=== PATIENT | female | born 1985 | race Caucasian/White ===

== ENCOUNTER 2018-01-04 02:38 | Inpatient (IN) | payer BC ==
[~2018-01-04] VITALS: Ht 160 cm; Wt 100.0 kg
[2018-01-04 02:56] VITALS: BP 129/68
[2018-01-04] MEDS ORDERED: OXYTOCIN 30U/ 0.9% NaCL 500ML 500 ML ONE ×2 (04:06→14:06)
[2018-01-04] MEDS ORDERED: MISOPROSTOL 200 MCG TABLET ONE (04:06)
[2018-01-04] MEDS ORDERED: LIDOCAINE 1%, 20ML ONE (04:06)
[2018-01-04] MEDS: D5%-LACTATED RINGERS 1,000 ML IV SCH ×2 (04:07→12:07)
[2018-01-04] MEDS ORDERED: OXYTOCIN 30U/ 0.9% NaCL 500ML 500 ML IV PRN (04:07)
[2018-01-04] MEDS ORDERED: OXYTOCIN 30U/ 0.9% NaCL 500ML 500 ML IV ONE (04:07)
[2018-01-04] MEDS ORDERED: FENTANYL PF 100 MCG/2ML ONE ×2 (04:15→05:08)
[2018-01-04] MEDS: LACTATED RINGERS 1,000 ML IV SCH ×4 (04:17→14:13)
[2018-01-04] MEDS ORDERED: ONDANSETRON 2MG/ML, 2ML ONE (04:19)
[2018-01-04] MEDS ORDERED: ONDANSETRON 2MG/ML, 2ML IVPush PRN ×2 (04:30→06:30)
[2018-01-04] MEDS ORDERED: FENTANYL PF 100 MCG/2ML IVPush PRN (04:30)
[2018-01-04] MEDS ORDERED: CALCIUM CARBONATE 500 MG TAB.CHEW PO PRN ×3 (04:30→18:30)
[2018-01-04] MEDS ORDERED: FENTANYL PF 100 MCG/2ML IV PRN (04:30)
[2018-01-04 04:58] LABS: BASOPHILS # (AUTO) 0.05 x10^3/uL (0-0.1); BASOPHILS % (AUTO) 0 % (0-1); EOSINOPHILS # (AUTO) 0.14 x10^3/uL (0-0.4); EOSINOPHILS % (AUTO) 1 % (1-7); LYMPHOCYTES # (AUTO) 1.85 x10^3/uL (1-3.4); LYMPHOCYTES % (AUTO) 14 % (22-44); MD NO; MEAN CORPUSCULAR HEMOGLOBIN 30.5 pg (27.0-34.8); MEAN CORPUSCULAR HGB CONC 34.1 g/dL (32.4-35.8); MEAN CORPUSCULAR VOLUME 89.4 fL (80-100); MEAN PLATELET VOLUME 10.4 fL (7.4-10.4); MONOCYTES % (AUTO) 5 % (2-9); NEUTROPHILS # (AUTO) 10.73 x10^3/uL (1.8-6.8); NEUTROPHILS % (AUTO) 80 % (42-75); PLATELET COUNT 203 x10^3/uL (130-400); RED BLOOD COUNT 4.33 x10^6/uL (3.82-5.3); RED CELL DISTRIBUTION WIDTH 14.9 % (9.6-15.2)
[2018-01-04] MEDS ORDERED: FENTANYL/BUPIV./NS/PF 250 ML EPIDCONT ONE (05:08)
[2018-01-04] MEDS ORDERED: BUPIVACAINE 0.25% ONE (05:08)
[2018-01-04] MEDS ORDERED: FENTANYL/BUPIV./NS/PF 250 ML EPIDCONT SCH (06:13)
[2018-01-04] MEDS ORDERED: LACTATED RINGERS 1,000 ML IVBOLUS PRN (06:30)
[2018-01-04] MEDS ORDERED: EPHEDRINE 50 MG/ML, 1ML IVPush PRN (06:30)
[2018-01-04] MEDS ORDERED: BETAMETHASONE 6 MG/ML, 5ML IM ONE (07:04)
[2018-01-04 07:50] VITALS: BP 145/75
[2018-01-04] MEDS ORDERED: OXYTOCIN 30U/ 0.9% NaCL 500ML 500 ML IV SCH (13:03)
[2018-01-04] MEDS ORDERED: MAGNESIUM HYDROXIDE 8%, 30ML UDC PO PRN ×2 (13:30→18:30)
[2018-01-04] MEDS ORDERED: OXYcodone/APAP 5/325MG TABLET PO PRN ×3 (13:30→18:30)
[2018-01-04] MEDS ORDERED: ONDANSETRON 2MG/ML, 2ML IV PRN ×2 (13:30→18:30)
[2018-01-04] MEDS ORDERED: RHOGAM FROM BLOOD BANK 1 NOTE EA IM/IV ONE ×2 (13:30→18:30)
[2018-01-04] MEDS ORDERED: DIPH,PERTUSS(ACELL),TET VAC/PF NC IM-VACC PRN ×2 (13:30→18:30)
[2018-01-04] MEDS ORDERED: ACETAMINOPHEN 325 MG TABLET PO PRN ×4 (13:30→18:30)
[2018-01-04] MEDS ORDERED: MISOPROSTOL 200 MCG TABLET PR PRN ×2 (13:30→18:30)
[2018-01-04] MEDS ORDERED: DOCUSATE 100 MG CAPSULE PO PRN ×2 (13:30→18:30)
[2018-01-04] MEDS ORDERED: MEASLES,MUMPS&RUBELLA VACC/PF 0.5 ML SQ PRN ×2 (13:30→18:30)
[2018-01-04] MEDS ORDERED: IBUPROFEN 600 MG TABLET PO PRN (13:30)
[2018-01-04] MEDS: OXYTOCIN 30U/ 0.9% NaCL 500ML 500 ML IV SCH (18:46)
[2018-01-04] MEDS ORDERED: IBUPROFEN 600 MG TABLET ONE (19:01)
[2018-01-04 20:40] VITALS: BP 111/70
[2018-01-04 23:30] VITALS: BP 103/63
[2018-01-04] MEDS: OXYcodone/APAP 5/325MG TABLET PO PRN (23:58)
[2018-01-05 02:27] LABS: MEAN CORPUSCULAR HEMOGLOBIN 30.5 pg (27.0-34.8); MEAN CORPUSCULAR HGB CONC 33.7 g/dL (32.4-35.8); MEAN CORPUSCULAR VOLUME 90.4 fL (80-100); MEAN PLATELET VOLUME 10.4 fL (7.4-10.4); PLATELET COUNT 182 x10^3/uL (130-400); RED BLOOD COUNT 3.42 x10^6/uL (3.82-5.3); RED CELL DISTRIBUTION WIDTH 14.9 % (9.6-15.2)
[2018-01-05 02:49] LABS: MD YES
[2018-01-05 02:50] VITALS: BP 133/76
[2018-01-05 02:50] LABS: BANDS%(MANUAL) 9 % (0-7); LYMPHS% (MANUAL) 5 % (22-44); MONOS% (MANUAL) 9 % (2-9); SEGS% (MANUAL) 77 % (42-75)
[2018-01-05 02:51] LABS: <PLATELET ESTIMATE> ADEQUATE; <PLT MORPHOLOGY> NORMAL PLT MORPH; <RBC MORPHOLOGY> NORMAL
[2018-01-05] MEDS: OXYTOCIN 30U/ 0.9% NaCL 500ML 500 ML IV SCH ×2 (04:02→14:02)
[2018-01-05 07:15] VITALS: BP 111/73
[2018-01-05] MEDS: OXYcodone/APAP 5/325MG TABLET PO PRN ×3 (07:22→20:33)
[2018-01-05] MEDS: IBUPROFEN 600 MG TABLET PO PRN ×3 (07:22→20:33)
[2018-01-05] MEDS: PRENATAL VIT/IRON/FA 1 EACH TABLET PO SCH (07:22)
[2018-01-05] MEDS ORDERED: PRENATAL VIT/IRON/FA 1 EACH TABLET PO SCH (09:00)
[2018-01-05 12:11] VITALS: BP 108/70
[2018-01-05 21:00] VITALS: BP 135/85
[2018-01-06] MEDS: OXYTOCIN 30U/ 0.9% NaCL 500ML 500 ML IV SCH ×2 (00:02→10:02)
[2018-01-06] MEDS: IBUPROFEN 600 MG TABLET PO PRN ×3 (03:43→15:42)
[2018-01-06] MEDS: OXYcodone/APAP 5/325MG TABLET PO PRN ×3 (03:43→15:42)
[2018-01-06 07:30] VITALS: BP 132/92
[2018-01-06] MEDS: PRENATAL VIT/IRON/FA 1 EACH TABLET PO SCH (09:00)
[2018-01-06] MEDS ORDERED: OXYC-302 PO (12:51)
[2018-01-06] MEDS ORDERED: IBUP-1222 PO (12:51)
== END 2018-01-06 21:45 | disposition home or self-care (01) | DRG 775 ==
LOC: LDOP 02:38 → LDIP 04:07 → 2NW 19:44
PROVIDERS: ADMIT Obstetrics & Gynecology; ATTEND Obstetrics & Gynecology
PROC: 10E0XZZ Delivery of Products of Conception, External Approach (ICD-10-PCS; principal; 2018-01-04)
PROC: 0KQM0ZZ Repair Perineum Muscle, Open Approach (ICD-10-PCS; 2018-01-04)
PROC: 3E0R3BZ Introduction of Anesthetic Agent into Spinal Canal, Percutaneous Approach (ICD-10-PCS; 2018-01-04)
PROC: 00HU33Z Insertion of Infusion Device into Spinal Canal, Percutaneous Approach (ICD-10-PCS; 2018-01-04)
DX: O77.0 Labor and delivery complicated by meconium in amniotic fluid (principal); O70.1 Second degree perineal laceration during delivery; Z37.0 Single live birth; Z3A.40 40 weeks gestation of pregnancy
CPT/HCPCS: 36415; 82803; 85025; 86850; 86900; J0702; J2405; J3010; J3490; J2590; J7120